=== PATIENT | male | born 1935 | race Caucasian/White ===

== ENCOUNTER 2018-02-11 13:00 | Outpatient (RCR) | payer MEDICARE, OTHER, SELFPAY ==
--- NOTE | 2018-02-11 13:00 | DT_ITS ---
This patient was seen during an EMR downtime February 04, 2018 - February 11, 2018. This patient may have a combination of paper and electronic documentation or all paper documentation. All documentation is viewable within the e-chart portion of [facility] for each patient visit.
--- NOTE | 2018-02-11 20:47 | HP.PTEVAL_ITS ---
Patient's Visit Information LEONOR BOSE is a 82 year old M referred to Physical Therapy by Anoop Garrison with a diagnosis of Lumbar facet arthrisits, stenosis. Date of Evaluation: 02/04/18 Physical Therapist: Rafi Pedroza PT, - Visit Plan Frequency: 2x /Week Duration: 4 Weeks Plan: Endurance training (nustep/recumbent bike). core strength with graded activityprogram with LE flexibility, - Subjective Subjective: Pt reports long history of LBP as far back as his adolescence. Pt with history of prostate CA in 2014 with radiation treatment. He has limited his activity, expereinced weight gain, and weakness at this time. Since then, he feels his back pain has worsened. Pain is worse in the morning and with prolonged walking. Pain decreases with sitting and rest. He used to eercise with walking and lifting at gym. He is not doing this anymore. Has history of bowel incontinence from prostate CA but this is nearly resolved, mild n/t in toes, denies trauma. Had previous PT ~10 years prior. Denies surgical hx or injections for LBP. SOCIAL: . 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 ROM: Lumbar flexion 25% limited, extension 25% limited, LF 25% limited bilaterally. L hip IR marked limitation otherwise WFL, R hip ROM WFL. NEURO: dermatome intact, myotome intact, unable to elicit L3 and S1 DTR. GAIT: Decreased step length, narrow [place] , flexed posture. FLEXIBILITY: Decreased hamstring flexibility. BALANCE: Mild sway with narrow stance with eyes closed - Goals Goal 1:: Pt will report ability to ambulate 30 minutes without increased pain. Goal Time Frame: 4-6 Weeks Goal 2:: Pt will report decreasd morning stiffness intensity. Goal Time Frame: 4-6 Weeks Goal 3:: Pt will be independent with HEP to sustain gains made in therapy. Goal Time Frame: 4-6 Weeks Goal 4:: Pt will reports >/= 50% functional improvement. Goal Time Frame: 4-6 Weeks - Rehabilitation Potential Physical Therapy Diagnosis: Pt is 82 y/o male referred from Dr. Anoop Garrison for lumbar facet arthritis and stenosis. He has history of prostate CA with radiation treatment in 2015 and decreased activity since. His activity limitations include decreased ambulation distance. He has limited participation in his usual recreational activities and community ambulation. Pt will benefit from skilled PT to address the above impairments. Rehabilitation Potential: Good - Anticipated Interventions Patient/Client Instruction: Educate patient on: Condition, Plan of Care For the Purpose of:: To decrease pain, To increase ROM, To improve muscle performance and motor function, To increase tolerance to activity/condition/ position, To improve ability of physical actions for home/community/work/leisure , To improve gait and locomotor functions, To increase flexibility/ROM, To improve endurance, To improve health and function Therapeutic Exercise to Include: Strength training, Endurance training, Body mechanics, Postural training, Flexibilty training, Active ROM For the Purpose of:: To decrease pain, To increase ROM, To improve muscle performance and motor function, To increase tolerance to activity/condition/ position, To improve ability of physical actions for home/community/work/leisure , To increase flexibility/ROM, To improve endurance, To improve balance, To facilitate caregiver knowledge TENS: Yes IF ES: Yes Cryotherapy (ice pack, ice massage): Yes Thermo therapy (hot pack): Yes Ultrasound (thermal/non thermal): Yes For the Purpose of:: To decrease pain, To increase ROM Thank you for the opportunity to evaluate your patient. For Medicare and Medicare HMO plans, please review the plan of care and approve it. It will need to be FAXED BACK to us at [phone] for Medicare purposes. Please let me know if there are questions or concerns regarding this plan of care. Physician Signature: Date:
--- NOTE | 2018-04-10 13:17 | HP.PTDCNRP_ITS ---
HP - Discharge Summary (1) - Patient Information LEONOR BOSE was seen in my office for initial evaluation on 02/04/18. The following Plan of Care was established for this patient: Initial Frequency: 2x /Week Initial Duration: 4 Weeks - Anticipated Interventions Patient/Client Instruction: Educate patient on: Condition, Plan of Care For the Purpose of:: To decrease pain, To increase ROM, To improve muscle performance and motor function, To increase tolerance to activity/condition/ position, To improve ability of physical actions for home/community/work/leisure , To improve gait and locomotor functions, To increase flexibility/ROM, To improve endurance, To improve health and function Therapeutic Exercise to Include: Strength training, Endurance training, Body mechanics, Postural training, Flexibilty training, Active ROM For the Purpose of:: To decrease pain, To increase ROM, To improve muscle performance and motor function, To increase tolerance to activity/condition/ position, To improve ability of physical actions for home/community/work/leisure , To increase flexibility/ROM, To improve endurance, To improve balance, To facilitate caregiver knowledge TENS: Yes IF ES: Yes Cryotherapy (ice pack, ice massage): Yes Thermo therapy (hot pack): Yes Ultrasound (thermal/non thermal): Yes For the Purpose of:: To decrease pain, To increase ROM This patient was last seen in our office 02/11/18. Pertinent comments regarding their Physical therapy will appear below: Patient seen for PT for lumbar pain for couple session focusing on core strengthening ,postural ex's ,HEP and modalities for pain releive,thus is d/c. At this point I will be discontinuing this patient from physical therapy. I would be happy to see this patient again in the future if found appropriate by the physician. Thank you! Rafi Pedroza, PT,
== END 2018-02-11 19:00 | disposition home or self-care (01) ==
LOC: PT 13:00
PROVIDERS: Family Provider Family Medicine; PCP Family Medicine; Visit Provider Family Medicine
DX: M46.86 Other specified inflammatory spondylopathies, lumbar region (principal)
CPT/HCPCS: 97110; 97162; G8978; G8979

== ENCOUNTER → 2020-02-26 15:35 | Outpatient (CLI) | payer MEDICARE, OTHER, SELFPAY ==
[2020-02-27 07:08] LABS: SARS-COV-2 TOTAL ABS Nonreactive (Nonreactive)
== END ==
PROVIDERS: PCP Family Medicine; Referring Provider Family Medicine; Visit Provider Family Medicine
DX: B34.9 Viral infection, unspecified (principal)
CPT/HCPCS: 86769; G2023

== ENCOUNTER 2020-09-23 16:06 | Outpatient (RCR) | payer MEDICARE, OTHER, SELFPAY | END 2020-09-23 23:59 | LOC: IMMUN 16:06 | PROVIDERS: PCP Family Medicine; Visit Provider Family Medicine | DX: Z23 Encounter for immunization (principal) | CPT/HCPCS: 0011A; 0012A; 91301 ==

== ENCOUNTER 2021-02-19 11:22 | Inpatient (IN) | payer MEDICARE, OTHER, SELFPAY ==
[2021-02-19 11:23] VITALS: BP 138/85; PULSE 71; RESP 15; TEMP 36.8; O2SAT 96; BMI 33.2
--- NOTE | 2021-02-19 11:44 | EKG12_ITS ---
Test Reason : CONFUSION Blood Pressure : / mmHG Vent. Rate : 063 BPM Atrial Rate : 063 BPM P-R Int : 148 ms QRS Dur : 098 ms QT Int : 426 ms P-R-T Axes : 061 -19 -10 degrees QTc Int : 435 ms Sinus rhythm with Premature supraventricular complexes Moderate voltage criteria for LVH, may be normal variant Borderline ECG Confirmed by ARVIND GATICA, DORYS ([id number]), make up editor OPAL SMITH ([id number]) on 02/21/2021 10:46:10 A M Referred By: DANNA Confirmed By:CHUY SAMUELS MD
--- NOTE | 2021-02-19 11:47 | EDS_ITS ---
HPI History of Present Illness Chief Complaint: Weakness Informant: patient Onset/Context/Timing Onset: Weeks (2) Context: Gradual Onset Timing: Continuous Quality: Weak Location: Generalized Worsened by: Nothing Relieved by: Nothing Narrative Narrative: Patient presents with generalized weakness that has been getting worse over the past 2 weeks. Patient saw his primary care physician 2 days ago. Patient had an MRI of his brain yesterday which was negative. Patient states he feels like he is off balance. Patient states he has not been eating or drinking anything for the past few days. Patient was diagnosed with a possible urinary tract infection and was started on Bactrim for that. [facility] Medical History (Updated 02/19/21 @ 22:[address] Porfirio Gloria DO) Alcohol abuse Anxiety Degenerative joint disease (DJD) of lumbar spine Former smoker GERD (gastroesophageal reflux disease) Hypercholesterolemia Prostate cancer TIA (transient ischemic attack) Home Medications ascorbic acid (vitamin C) [Vitamin C] 1 g PO DAILY 02/19/21 [History Last Taken Unknown] aspirin-dipyridamole [Aggrenox] 1 cap PO BID 02/19/21 [History Last Taken Unknown] cholecalciferol (vitamin D3) [Vitamin D3] 25 mcg PO MOTUWETHFR 02/19/21 [History Last Taken Unknown] lorazepam [Ativan] 0.5 mg PO BID PRN 02/19/21 [History Last Taken Unknown] multivitamin [Multiple Vitamin] 1 tab PO DAILY 02/19/21 [History Last Taken Unknown] simvastatin [Zocor] 40 mg PO QHS 02/19/21 [History Last Taken Unknown] sulfamethoxazole-trimethoprim [Bactrim DS] 1 tab PO BID 02/19/21 [History Last Taken Unknown] Allergy/AdvReac Type Severity Reaction Status Date / Time Penicillins [PCN] Allergy Rash Verified 02/19/21 11:32 atorvastatin [From Lipitor] AdvReac muscle Verified 02/19/21 16:52 aches clopidogrel [From Plavix] AdvReac bruising Verified 02/19/21 16:52 metformin AdvReac didnt Verified 02/19/21 16:52 feel good Family History (Updated 02/19/21 @ 16:[address] Chaitanya Hodge MD) Father Hypertension Surgical History History of cataract surgery History of herniorrhaphy History of prostate biopsy History of tonsillectomy Social History Smoking Status: Former smoker alcohol intake: current alcohol intake frequency: a few times a month Alcohol type: beer and wine ROS ROS ED Constitutional Constitutional ED: Denies chills or fever(s) Eyes Eyes: Denies blurry vision or change in vision ENT ENT ED: Reports rhinorrhea; Denies sore throat Cardiovascular Cardiovascular: Denies chest pain or palpitations Respiratory/Chest Respiratory/Chest: Denies cough or dyspnea Gastrointestinal Gastrointestinal: Reports nausea and vomiting Genitourinary Genitourinary ED: Denies dysuria or hematuria Musculoskeletal Musculoskeletal: Reports back pain and neck pain Integumentary Denies abscess or rash Neurologic Neurologic: Reports weakness; Denies headache(s) Allergic/Immunologic Allergic/Immunologic ED: Denies mouth swelling or urticaria EXAM Physical Exam Const Vital Signs: 02/19/21 11:23 02/19/21 12:49 02/19/21 14:35 Temperature 98.2 F Temperature Source Oral Pulse Rate 71 60 60 Respiratory Rate 15 20 H 20 H Respiratory Effort Normal Respiratory Pattern Normal Blood Pressure 138/85 H 126/70 H 136/78 H Blood Pressure Mean 102 88 97 Pulse Ox 96 96 Oxygen Delivery Method Room Air Positive well nourished and well developed General Appearance ED: well developed HEENT Reports moist mucous membranes Neck supple and no JVD Chest Wall palpation of chest normal Resp normal respiratory effort and clear to auscultation bilaterally Cardio regular rate and regular rhythm GI normal to inspection, nondistended, normoactive bowel sounds and non-tender Palpation: soft Neuro oriented x3, CN's II-XII intact bilaterally and no sensory deficits noted Sensorium / Orientation: alert Motor Exam: strength 5/5 throughout Psych mental status grossly normal MDM MDM MDM Narrative Medical decision making narrative: EKG was obtained. On my interpretation, it showed a normal sinus rhythm with a rate of 63 with occasional PAC. [place] interv al, QRS interval, and QTc intervals were all normal. [place] was normal. There are no acute ST or T wave changes. CBC and comprehensive metabolic profile were obtained and were essentially within normal limits. Troponin was normal. PT with INR and PTT were normal. Lactate was normal. Urinalysis does not show any evidence of urinary tract infection. Since the patient had a MRI done yesterday, CT scan of the brain was not performed today. Portable 1 view chest x-ray was obtained. On my interpretation, lung worthy are clear. There is normal cardiac silhouette. Bony thorax is normal. There is no acute process noted. Radiologist also interpreted the x-ray and agrees. On reevaluation, patient was having difficulty even standing and was unable to ambulate. Case was discussed with the hospitalist. He will admit the patient to his service. Patient understood and was agreeable with the plan. All questions were answered. Lab Data Labs: Laboratory Results - last 24 hr 02/19/21 02/19/21 02/19/21 12:45 12:45 12:45 WBC 7.4 RBC 4.54 L Hgb 13.6 Hct 41.6 MCV 91.6 MCH 30.0 MCHC 32.7 RDW Std Deviation 45.8 H RDW Coeff of [place] 13.5 Plt Count 244 MPV 9.9 Immature Gran % (Auto) 0.400 Neut % (Auto) 72.7 H Lymph % (Auto) 16.1 L [place] % (Auto) 10.1 H Eos % (Auto) 0.3 Baso % (Auto) 0.4 Absolute Neuts (auto) 5.4 Absolute Lymphs (auto) 1.19 Nucleated RBC % 0 PT 13.3 INR 1.1 APTT 29.6 Sodium 136 Potassium 4.1 Chloride 103 Carbon Dioxide 25.0 Anion Gap 8 BUN 14 Creatinine 0.76 Estim Creat Clear Calc 54.15 Est GFR (MDRD) Af Amer 126 Est GFR (MDRD) Non-Af 104 BUN/Creatinine Ratio 18.5 Glucose 103 Lactic Acid Calcium 8.9 Total Bilirubin 0.70 AST 27 ALT 27 Alkaline Phosphatase 65 Troponin I < 0.015 Total Protein 6.8 Albumin 3.6 Globulin 3.2 Albumin/Globulin Ratio 1.1 Urine Color Urine Clarity Urine pH Ur Specific [place] Urine Protein Urine Glucose (UA) Urine Ketones Urine Occult Blood Urine Nitrite Urine Bilirubin Urine Urobilinogen Ur Leukocyte Esterase Urine RBC Urine WBC Ur Squamous Epith Cells Urine Bacteria Urine Mucus 02/19/21 02/19/21 12:45 14:00 WBC RBC Hgb Hct MCV MCH MCHC RDW Std Deviation RDW Coeff of [place] Plt Count MPV Immature Gran % (Auto) Neut % (Auto) Lymph % (Auto) [place] % (Auto) Eos % (Auto) Baso % (Auto) Absolute Neuts (auto) Absolute Lymphs (auto) Nucleated RBC % PT INR APTT Sodium Potassium Chloride Carbon Dioxide Anion Gap BUN Creatinine Estim Creat Clear Calc Est GFR (MDRD) Af Amer Est GFR (MDRD) Non-Af BUN/Creatinine Ratio Glucose Lactic Acid 1.2 Calcium Total Bilirubin AST ALT Alkaline Phosphatase Troponin I Total Protein Albumin Globulin Albumin/Globulin Ratio Urine Color Yellow Urine Clarity Clear Urine pH 5.0 Ur Specific [place] 1.025 Urine Protein 30 H Urine Glucose (UA) Normal Urine Ketones 150 A* Urine Occult Blood 25 H Urine Nitrite Negative Urine Bilirubin Negative Urine Urobilinogen 1 H Ur Leukocyte Esterase Negative Urine RBC 0-5 SEEN Urine WBC 0 SEEN Ur Squamous Epith Cells 0 SEEN Urine Bacteria 1+ Urine Mucus 1+ Radiography Diagnostic Testing: Radiology Impression Chest X-Ray 02/19/21 12:35 IMPRESSION: Normal x-ray examination of the chest. Electronically Signed: Franco Macedo MD at 13:23 EDT Tel , Service support , EKG Initial EKG: Attestation: I personally reviewed and interpreted this EKG as follows: Interpretation: Sinus Rhythm (63) and No Acute Injury Pattern Comments: Occasional PAC Prior EKG tracings: available for review Prior: Unchanged (12/12/2010) Treatment and Re-Evaluation Vital Sign Attestation:: Vital signs were reviewed prior to admission. They are stable. Discharge Plan Dx/Rx/DC Orders Clinical Impression: FTT (failure to thrive) in adult Disposition Disposition: Acute Care Hospital [facility] Discharge Date/Time: 02/19/21 16:20
--- NOTE | 2021-02-19 12:35 | RAD_ITS ---
STUDY: X-RAY CHEST REASON FOR EXAM: Male, 85 years old. Weakness TECHNIQUE: Frontal portable view of the chest COMPARISON: None. FINDINGS: The lungs are clear and expanded. There is no demonstrated pleural abnormality. Normal size heart. Normal mediastinum and mickey. Normal visualized pulmonary arteries. Normal visualized aortic arch and descending thoracic aorta. Normal visualized thoracic spine. Normal visualized ribs, clavicles, and shoulders. There is no demonstrated abnormality of the visualized soft tissue structures of the upper abdomen. RAD/Chest 1 View (Portable) IMPRESSION: Normal x-ray examination of the chest. Electronically Signed: Franco Macedo MD at 13:23 EDT Tel , Service support ,
[2021-02-19 12:49] VITALS: BP 126/70; PULSE 60; RESP 20; O2SAT 96
[2021-02-19] MEDS: 0.9% Normal Saline 1,000 ML 1000 ML IV (12:59)
[2021-02-19 13:06] LABS: Absolute Lymphocyte Count 1.19 X10^3/uL (0.83-4.51); Absolute Neutrophil Count 5.4 X10^3/uL (2.0-7.7); Basophil# 0.03 X10^3/uL; Basophil% 0.4 % (0-1); Eosinophil# 0.02 X10^3/uL; Eosinophils% 0.3 % (0-5); Hematocrit 41.6 % (40-54); Hemoglobin 13.6 g/dL (13.0-16.5); Lymphocyte # 1.19 X10^3/ul (0.83-4.51); Lymphocyte % 16.1 % (19-41); Mean Corp Hgb Conc 32.7 g/dL (32-36); Mean Corpuscular Volume 91.6 fL (80-94); Mean Platelet Vol. 9.9 fl (6.2-12.0); Monocyte# 0.75 X10^3/uL; Monocyte% 10.1 % (0-10); NRBC Flagged by Analyzer 0 % (0-5); Neutrophil # 5.37 X10^3/uL (2.7-7.7); Neutrophil % 72.7 % (47-70); Platelet Count 244 K/mm3 (150-450); RBC Distribution Width CV 13.5 % (11.6-14.6); RBC Distribution Width SD 45.8 fl (35.1-43.9); Red Blood Count 4.54 M/mm3 (4.6-6.2); White Blood Count 7.4 K/mm3 (4.4-11.0)
[2021-02-19 13:10] LABS: International Normalized Ratio 1.1; Prothrombin Time (Protime)PT. 13.3 SECONDS (11.7-14.9)
[2021-02-19 13:11] LABS: Partial Thromboplast Time 29.6 Seconds (24.1-36.2)
[2021-02-19 13:18] LABS: ALB/GLOB Ratio 1.1 RATIO (0.9-2.4); AST(SGOT) 27 U/L (15-37); Alanine Aminotransfer ALT/SGPT 27 U/L (16-61); Albumin, Serum 3.6 g/dL (3.2-5.0); Alkaline Phosphatase 65 U/L (45-117); Anion Gap 8 (5-15); BUN 14 mg/dL (7-18); BUN/Creat Ratio 18.5 RATIO (10-20); Calcium,Total 8.9 mg/dL (8.5-10.1); Chloride 103 mmol/L (98-107); Creatinine, Serum 0.76 mg/dL (0.70-1.30); EST Glomerular Filtration Rate 104 mL/min (>60); Est Glom Filt Rate - Afr Amer 126 mL/min (>60); Estimated Creatinine Clearance 54.15 ml/min; Globulin 3.2 g/dL (2.2-4.2); Glucose 103 mg/dL (74-106); Potassium 4.1 mmol/L (3.5-5.1); Protein, Total 6.8 g/dL (6.4-8.2); Sodium Level 136 mmol/L (136-145)
[2021-02-19 13:21] LABS: Lactic Acid 1.2 mmol/L (0.4-1.9)
[2021-02-19 14:04] LABS: Squamous Epithelial Cells - UA 0 SEEN /hpf (0-5); White Blood Cells 0 SEEN /hpf (0-5)
[2021-02-19 14:08] LABS: Color, Urine Yellow (Yellow); Glucose, Dipstick Normal (Normal); Leukocyte Esterase-Dipstick Negative /ul (Negative); Nitrite-Dipstick Negative (Negative); Occult Blood-Urine 25 /ul (Negative); Protein-Dipstick 30 mg/dl (Negative); Specific Gravity, Urine 1.025 (1.002-1.030); Urine Bilirubin Dipstick Negative (Negative); Urine Clarity Clear (Clear); Urine Urobilinogen 1 mg/dl (Normal)
[2021-02-19 14:11] LABS: Ketone-Dipstick 150 mg/dl (Negative)
[2021-02-19 14:14] LABS: Bacteria 1+ /hpf (None Seen); Mucous, Urine 1+ /hpf (<or=2+); Red Blood Cells-Urine 0-5 SEEN /hpf (0-5)
[2021-02-19 14:35] VITALS: BP 136/78; PULSE 60; RESP 20
--- NOTE | 2021-02-19 15:56 | PCM.HP.STD ---
HPI - General General Date of Admission: 02/19/21 Date of Service: 02/19/21 Chief Complaint: Generalized weakness HPI Narrative LEONOR BOSE, is a 85 M with past medical history significant for dyslipidemia, recent diagnosis of UTI as outpatient who presents with generalized weakness. Patient states he had been treated with Bactrim for UTI as outpatient he however did not complete treatment since it made him sick. He has also noticed increasing generalized weakness and unsteady balance and difficulty with speech as well as recollection of his start. Presented to the emergency department as a result. An assessment of dehydration made based on his labs. Admitted to regular nursing floor for further management [facility] Medical History Anxiety Degenerative joint disease (DJD) of lumbar spine Hypercholesterolemia Prostate cancer Home Medications ascorbic acid (vitamin C) [Vitamin C] 1 g PO DAILY 02/19/21 [History Last Taken Unknown] aspirin-dipyridamole [Aggrenox] 1 cap PO BID 02/19/21 [History Last Taken Unknown] cholecalciferol (vitamin D3) [Vitamin D3] 25 mcg PO MOTUWETHFR 02/19/21 [History Last Taken Unknown] lorazepam [Ativan] 0.5 mg PO BID PRN 02/19/21 [History Last Taken Unknown] multivitamin [Multiple Vitamin] 1 tab PO DAILY 02/19/21 [History Last Taken Unknown] simvastatin [Zocor] 40 mg PO QHS 02/19/21 [History Last Taken Unknown] sulfamethoxazole-trimethoprim [Bactrim DS] 1 tab PO BID 02/19/21 [History Last Taken Unknown] Allergy/AdvReac Type Severity Reaction Status Date / Time Penicillins [PCN] Allergy Rash Verified 02/19/21 11:32 atorvastatin [From Lipitor] AdvReac Other Verified 02/19/21 11:32 clopidogrel [From Plavix] AdvReac Other Verified 02/19/21 11:32 metformin AdvReac Other Verified 02/19/21 11:32 Family History (Updated 02/19/21 @ 16:[address] Chaitanya Hodge MD) Father Hypertension Surgical History History of cataract surgery History of herniorrhaphy History of prostate biopsy History of tonsillectomy Social History Smoking Status: Never smoker alcohol intake: current alcohol intake frequency: a few times a month Alcohol type: beer and wine ROS ROS Narrative GENERAL: denies fever, chills, HEENT: denies headache, sinus congestion, RESPIRATORY: denies cough, sputum production, CARDIAC: denies chest pain, palpitations, GASTROINTESTINAL: denies abdominal pain, GENITOURINARY: denies dysuria, urgency, EXTREMITY: denies swelling MUSCULOSKELETAL: denies current joint pain NEUROLOGIC: denies focal numbness, HEMATOLOGIC: denies easy bruising INTEGUMENT: denies rashes PSYCHIATRIC: denies suicidal or homicidal ideation Vital Signs Vital Signs Vital Signs: 02/19/21 11:23 02/19/21 12:49 02/19/21 14:35 Temperature 98.2 F Temperature Source Oral Pulse Rate 71 60 60 Respiratory Rate 15 20 H 20 H Respiratory Effort Normal Respiratory Pattern Normal Blood Pressure 138/85 H 126/70 H 136/78 H Blood Pressure Mean 102 88 97 Pulse Ox 96 96 Oxygen Delivery Method Room Air Weight Weight: 99 kg Body Mass Index (BMI) 33.2 Physical Exam Narrative GENERAL: cooperative HEENT: Atraumatic; EYES; Anicteric, Normal Conjunctiva NECK; supple, normal thyroid, RESPIRATORY: Diminished to auscultation CARDIOVASCULAR: Regular S1 S2, GI: soft, normoactive bowel sounds, : No Renal angle tenderness; EXTREMITIES: No edema, no clubbing, MUSCULOSKELETAL: no muscle waisting NEURO: Awake; no lateralizing signs. SKIN: No Rash PSYCH; Flat affect Results Lab / Micro Data Result Diagrams: 02/19/21 12:45 02/19/21 12:45 Labs: Laboratory Results - last 24 hr 02/19/21 02/19/21 02/19/21 12:45 12:45 12:45 WBC 7.4 RBC 4.54 L Hgb 13.6 Hct 41.6 MCV 91.6 MCH 30.0 MCHC 32.7 RDW Std Deviation 45.8 H RDW Coeff of [place] 13.5 Plt Count 244 MPV 9.9 Immature Gran % (Auto) 0.400 Neut % (Auto) 72.7 H Lymph % (Auto) 16.1 L [place] % (Auto) 10.1 H Eos % (Auto) 0.3 Baso % (Auto) 0.4 Absolute Neuts (auto) 5.4 Absolute Lymphs (auto) 1.19 Nucleated RBC % 0 PT 13.3 INR 1.1 APTT 29.6 Sodium 136 Potassium 4.1 Chloride 103 Carbon Dioxide 25.0 Anion Gap 8 BUN 14 Creatinine 0.76 Estim Creat Clear Calc 54.15 Est GFR (MDRD) Af Amer 126 Est GFR (MDRD) Non-Af 104 BUN/Creatinine Ratio 18.5 Glucose 103 Lactic Acid Calcium 8.9 Total Bilirubin 0.70 AST 27 ALT 27 Alkaline Phosphatase 65 Troponin I < 0.015 Total Protein 6.8 Albumin 3.6 Globulin 3.2 Albumin/Globulin Ratio 1.1 Urine Color Urine Clarity Urine pH Ur Specific [place] Urine Protein Urine Glucose (UA) Urine Ketones Urine Occult Blood Urine Nitrite Urine Bilirubin Urine Urobilinogen Ur Leukocyte Esterase Urine RBC Urine WBC Ur Squamous Epith Cells Urine Bacteria Urine Mucus 02/19/21 02/19/21 12:45 14:00 WBC RBC Hgb Hct MCV MCH MCHC RDW Std Deviation RDW Coeff of [place] Plt Count MPV Immature Gran % (Auto) Neut % (Auto) Lymph % (Auto) [place] % (Auto) Eos % (Auto) Baso % (Auto) Absolute Neuts (auto) Absolute Lymphs (auto) Nucleated RBC % PT INR APTT Sodium Potassium Chloride Carbon Dioxide Anion Gap BUN Creatinine Estim Creat Clear Calc Est GFR (MDRD) Af Amer Est GFR (MDRD) Non-Af BUN/Creatinine Ratio Glucose Lactic Acid 1.2 Calcium Total Bilirubin AST ALT Alkaline Phosphatase Troponin I Total Protein Albumin Globulin Albumin/Globulin Ratio Urine Color Yellow Urine Clarity Clear Urine pH 5.0 Ur Specific [place] 1.025 Urine Protein 30 H Urine Glucose (UA) Normal Urine Ketones 150 A* Urine Occult Blood 25 H Urine Nitrite Negative Urine Bilirubin Negative Urine Urobilinogen 1 H Ur Leukocyte Esterase Negative Urine RBC 0-5 SEEN Urine WBC 0 SEEN Ur Squamous Epith Cells 0 SEEN Urine Bacteria 1+ Urine Mucus 1+ Micro: Microbiology 02/19/21 13:00 SARS-CoV-2 Antigen (Rapid) - Final Mucosa - Nose Radiology Impression Chest X-Ray 02/19/21 12:35 IMPRESSION: Normal x-ray examination of the chest. Electronically Signed: Franco Macedo MD at 13:23 EDT Tel , Service support , Assessment & Plan Assessment/Plan (1) Dehydration: (2) Ketonuria: (3) FTT (failure to thrive) in adult: PLAN: Patient is an 85-year-old gentleman admitted with progressive generalized weakness 1. Adult failure to thrive - Requested for PT OT eval and oncology social worker to assist with discharge planning 2. Dehydration ?As evidenced by patient's ketonuria ?On IV fluids with subsequent monitoring of electrolytes 3. Partially treated acute cystitis ?Patient started on Rocephin cultures sent 4. Dyslipidemia -Patient is on statin therapy, continued at home dose 5. Obesity with BMI of 33.2 ?Weight loss advised 6. DVT prophylaxis - On enoxaparin Advance planning; did discuss with the patient regarding advanced directives as well as CODE STATUS. Did explain the various scenarios involved ( FULL CODE, DNR CCA, DNR CCA with no intubation, and DNR CC and what each meant) patient elected to be DNR CCA no intubation. Order was placed. Time spent on discussion 18 minutes. Charges/Coding Visit Charges OBSV E&M: 78553 Initial observation care L3 Procedures Hospitalists Procedures: 23949 Advncd Care Plan 30 Min
[2021-02-19 16:48] VITALS: BMI 33.4
[2021-02-19 16:49] VITALS: BP 132/70; PULSE 66; RESP 18; TEMP 36.6; O2SAT 94
[2021-02-19] MEDS: Enoxaparin 40 MG/0.4 ML Syringe SC (17:12)
[2021-02-19] MEDS: 0.9% Normal Saline 1,000 ML 100 ML IV (17:12)
[2021-02-19] MEDS: 0.9% Saline Lock 10 ML Syringe IV (17:12)
--- NOTE | 2021-02-19 17:25 | CM.ED ---
ANTONIA Note ANTONIA was advised by RN in ED that patient's daughter, Rowena, resides in [place] and is asking about patient needing a Retirement Facility or Assisted Living Facility in [place] or in [place]. Rn said that patient has been playing with his meds and is confused and pops them to take them. RN said that patient is not eating or drinking but when she hands the water and food to him he eats and drinks. RN said that patient is unstead on his feet and had urine all over him when he got up. Patient told RN that the water does not taste good but when RN gave him water he drank 2 glasses of it. ANTONIA called Rowena, daughter in [place] at [phone]. Rowena was advised that patient is currently on observation status. Rowena said that her sister is closer so her sister is coming to [place] but they are trying to arrange it. ANTONIA explained PT/OT have been ordered and when the evaluations are completed then staff will have a better understanding of patient and his needs. Rowena said that she has information that she would like to provide to the MD and requested to speak to MD. ANTONIA provided patient with the phone number of [phone]. Rowena has no further issues or concerns. Plan: To be determined. Rivka POE
--- NOTE | 2021-02-19 17:50 | NURSING ---
IV SITE INFILTRATED. THIS NURSE ATTEMPTED RESTART X2. ANOTHER NURSE WENT TO RESTART BUT PT UNWILLING TO PUT HIS SANDWICH DOWN AT THIS TIME. WILL START FLUIDS AND ATB WHEN IV IS PLACED. PT ALSO REPORTS THAT HE BROUGHT HIS CANE TO THE HOSPITAL, THIS NURSE CALLED AND NOTIFIED KOSTA IN THE ER.
[2021-02-19] MEDS: Ceftriaxone 1 GM/50 ML BAG IV (18:18)
[2021-02-19 20:29] VITALS: BP 108/55; PULSE 61; RESP 18; TEMP 36.9; O2SAT 96
[2021-02-20 02:44] VITALS: BP 120/60; PULSE 99; RESP 18; TEMP 36.7; O2SAT 96
[2021-02-20 06:14] LABS: Absolute Lymphocyte Count 1.56 X10^3/uL (0.83-4.51); Absolute Neutrophil Count 4.2 X10^3/uL (2.0-7.7); Basophil# 0.05 X10^3/uL; Basophil% 0.7 % (0-1); Eosinophil# 0.09 X10^3/uL; Eosinophils% 1.3 % (0-5); Hematocrit 40.1 % (40-54); Hemoglobin 13.1 g/dL (13.0-16.5); Lymphocyte # 1.56 X10^3/ul (0.83-4.51); Lymphocyte % 23.1 % (19-41); Mean Corp Hgb Conc 32.7 g/dL (32-36); Mean Corpuscular Hgb 29.9 pg (27.0-32.0); Mean Corpuscular Volume 91.6 fL (80-94); Mean Platelet Vol. 10.2 fl (6.2-12.0); Monocyte# 0.81 X10^3/uL; NRBC Flagged by Analyzer 0 % (0-5); Neutrophil # 4.22 X10^3/uL (2.7-7.7); Neutrophil % 62.6 % (47-70); Platelet Count 234 K/mm3 (150-450); RBC Distribution Width CV 13.2 % (11.6-14.6); RBC Distribution Width SD 45.1 fl (35.1-43.9); Red Blood Count 4.38 M/mm3 (4.6-6.2); White Blood Count 6.8 K/mm3 (4.4-11.0)
[2021-02-20 06:37] LABS: Anion Gap 7 (5-15); BUN 12 mg/dL (7-18); BUN/Creat Ratio 17.8 RATIO (10-20); Calcium,Total 8.3 mg/dL (8.5-10.1); Chloride 106 mmol/L (98-107); Creatinine, Serum 0.68 mg/dL (0.70-1.30); EST Glomerular Filtration Rate 119 mL/min (>60); Est Glom Filt Rate - Afr Amer 144 mL/min (>60); Estimated Creatinine Clearance 54.15 ml/min; Glucose 102 mg/dL (74-106); Potassium 3.6 mmol/L (3.5-5.1); Sodium Level 137 mmol/L (136-145)
--- NOTE | 2021-02-20 07:18 | PN.HOSP_ITS ---
Subjective Subjective Patient seen per nursing staff was delirious during the night removing his IV 3 times. Did discontinue his IV change antibiotics to p.o. Do suspect some underlying cognitive issues. Objective Data Objective Data Vital Signs: Vital Signs Temp Pulse Resp BP Pulse Ox 98.1 F 99 18 120/60 96 02/20/21 02:44 02/20/21 02:44 02/20/21 02:44 02/20/21 02:44 02/20/21 02:44 Oxygen Delivery Method Room Air Weight: 99.8 kg Body Mass Index (BMI) 33.4 Intake & Output: Intake and Output for Last 24 Hours 02/18/21 02/19/21 02/20/21 23:59 23:59 23:59 Intake Total 1161.67 / 1461.67 1388.33 / 1388.33 Output Total 1100 / 1100 Balance 1161.67 / 961.67 288.33 / 288.33 Lab / Micro Data Result Diagrams: 02/20/21 05:42 02/20/21 05:42 Labs: Laboratory Results - last 24 hr 02/19/21 02/19/21 02/19/21 12:45 12:45 12:45 WBC 7.4 RBC 4.54 L Hgb 13.6 Hct 41.6 MCV 91.6 MCH 30.0 MCHC 32.7 RDW Std Deviation 45.8 H RDW Coeff of [place] 13.5 Plt Count 244 MPV 9.9 Immature Gran % (Auto) 0.400 Neut % (Auto) 72.7 H Lymph % (Auto) 16.1 L Loving % (Auto) 10.1 H Eos % (Auto) 0.3 Baso % (Auto) 0.4 Absolute Neuts (auto) 5.4 Absolute Lymphs (auto) 1.19 Nucleated RBC % 0 PT 13.3 INR 1.1 APTT 29.6 Sodium 136 Potassium 4.1 Chloride 103 Carbon Dioxide 25.0 Anion Gap 8 BUN 14 Creatinine 0.76 Estim Creat Clear Calc 54.15 Est GFR (MDRD) Af Amer 126 Est GFR (MDRD) Non-Af 104 BUN/Creatinine Ratio 18.5 Glucose 103 Lactic Acid Calcium 8.9 Magnesium Total Bilirubin 0.70 AST 27 ALT 27 Alkaline Phosphatase 65 Troponin I < 0.015 Total Protein 6.8 Albumin 3.6 Globulin 3.2 Albumin/Globulin Ratio 1.1 Urine Color Urine Clarity Urine pH Ur Specific [place] Urine Protein Urine Glucose (UA) Urine Ketones Urine Occult Blood Urine Nitrite Urine Bilirubin Urine Urobilinogen Ur Leukocyte Esterase Urine RBC Urine WBC Ur Squamous Epith Cells Urine Bacteria Urine Mucus 02/19/21 02/19/21 02/20/21 12:45 14:00 05:42 WBC 6.8 RBC 4.38 L Hgb 13.1 Hct 40.1 MCV 91.6 MCH 29.9 MCHC 32.7 RDW Std Deviation 45.1 H RDW Coeff of [place] 13.2 Plt Count 234 MPV 10.2 Immature Gran % (Auto) 0.300 Neut % (Auto) 62.6 Lymph % (Auto) 23.1 Loving % (Auto) 12.0 H Eos % (Auto) 1.3 Baso % (Auto) 0.7 Absolute Neuts (auto) 4.2 Absolute Lymphs (auto) 1.56 Nucleated RBC % 0 PT INR APTT Sodium Potassium Chloride Carbon Dioxide Anion Gap BUN Creatinine Estim Creat Clear Calc Est GFR (MDRD) Af Amer Est GFR (MDRD) Non-Af BUN/Creatinine Ratio Glucose Lactic Acid 1.2 Calcium Magnesium Total Bilirubin AST ALT Alkaline Phosphatase Troponin I Total Protein Albumin Globulin Albumin/Globulin Ratio Urine Color Yellow Urine Clarity Clear Urine pH 5.0 Ur Specific [place] 1.025 Urine Protein 30 H Urine Glucose (UA) Normal Urine Ketones 150 A* Urine Occult Blood 25 H Urine Nitrite Negative Urine Bilirubin Negative Urine Urobilinogen 1 H Ur Leukocyte Esterase Negative Urine RBC 0-5 SEEN Urine WBC 0 SEEN Ur Squamous Epith Cells 0 SEEN Urine Bacteria 1+ Urine Mucus 1+ 02/20/21 05:42 WBC RBC Hgb Hct MCV MCH MCHC RDW Std Deviation RDW Coeff of [place] Plt Count MPV Immature Gran % (Auto) Neut % (Auto) Lymph % (Auto) Loving % (Auto) Eos % (Auto) Baso % (Auto) Absolute Neuts (auto) Absolute Lymphs (auto) Nucleated RBC % PT INR APTT Sodium 137 Potassium 3.6 Chloride 106 Carbon Dioxide 24.0 Anion Gap 7 BUN 12 Creatinine 0.68 L Estim Creat Clear Calc 54.15 Est GFR (MDRD) Af Amer 144 Est GFR (MDRD) Non-Af 119 BUN/Creatinine Ratio 17.8 Glucose 102 Lactic Acid Calcium 8.3 L Magnesium 2.0 Total Bilirubin AST ALT Alkaline Phosphatase Troponin I Total Protein Albumin Globulin Albumin/Globulin Ratio Urine Color Urine Clarity Urine pH Ur Specific [place] Urine Protein Urine Glucose (UA) Urine Ketones Urine Occult Blood Urine Nitrite Urine Bilirubin Urine Urobilinogen Ur Leukocyte Esterase Urine RBC Urine WBC Ur Squamous Epith Cells Urine Bacteria Urine Mucus Micro: Microbiology 02/19/21 13:00 Mucosa - Nose SARS-CoV-2 Antigen (Rapid) - Final Radiography Diagnostic Testing: Radiology Impression Chest X-Ray 02/19/21 12:35 IMPRESSION: Normal x-ray examination of the chest. Electronically Signed: Franco Macedo MD at 13:23 EDT Tel , Service support , Physical Exam Narrative GENERAL: cooperative HEENT: Atraumatic; EYES; Anicteric, Normal Conjunctiva NECK; supple, normal thyroid, RESPIRATORY: Diminished to auscultation CARDIOVASCULAR: Regular S1 S2, GI: soft, normoactive bowel sounds, : No Renal angle tenderness; EXTREMITIES: No edema, no clubbing, MUSCULOSKELETAL: no muscle waisting NEURO: Awake; no lateralizing signs. SKIN: No Rash PSYCH; Flat affect Assessment & Plan Assessment/Plan (1) Dehydration: (2) Ketonuria: (3) FTT (failure to thrive) in adult: PLAN: Patient is an 85-year-old gentleman admitted with progressive generalized weakness 1. Adult failure to thrive - Requested for PT OT eval and social research assistant to assist with discharge planning 2. Dehydration ?As evidenced by patient's ketonuria ?On IV fluids with subsequent monitoring of electrolytes 3. Partially treated acute cystitis ?Patient started on Rocephin cultures sent ?02/20/2021; discontinue Rocephin start the patient on cefdinir will discontinue antibiotics if cultures come back negative 4. Dyslipidemia -Patient is on statin therapy, continued at home dose 5. Obesity with BMI of 33.2 ?Weight loss advised 6. DVT prophylaxis - On enoxaparin 7. Cognitive impairment ?Do suspect patient may be experiencing early phase of dementia Charges/Coding Visit Charges Inpatient E&M: 37082 Subs Hosp L2
[2021-02-20] MEDS: Enoxaparin 40 MG/0.4 ML Syringe SC (09:39)
[2021-02-20] MEDS: Cefdinir 300 MG Capsule PO ×2 (09:40→20:09)
[2021-02-20] MEDS: Famotidine 20 MG Tablet PO ×2 (09:40→20:08)
[2021-02-20 09:44] VITALS: BP 150/91; PULSE 81; RESP 16; TEMP 36.6; O2SAT 96
[2021-02-20 15:41] VITALS: BP 123/75; PULSE 68; RESP 14; TEMP 36.6; O2SAT 94
[2021-02-20 19:58] VITALS: BP 150/86; PULSE 66; RESP 16; TEMP 36.6; O2SAT 98
[2021-02-20] MEDS: MELATONIN 3 MG TABLET PO (20:08)
[2021-02-20] MEDS: Acetaminophen 325 MG Tablet 650 MG PO (20:09)
[2021-02-21 04:19] VITALS: BP 136/66; PULSE 58; RESP 16; TEMP 36.3; O2SAT 98
--- NOTE | 2021-02-21 04:20 | NURSING ---
staff in to check on pt he had removed his wet attend and dropped it on the floor, pt was naked and had voided in his bed. staff changed linens, provided personal hygiene, new attends on, bed exit on. pt denies needs.
[2021-02-21 06:11] LABS: Absolute Lymphocyte Count 1.44 X10^3/uL (0.83-4.51); Absolute Neutrophil Count 3.6 X10^3/uL (2.0-7.7); Basophil# 0.07 X10^3/uL; Basophil% 1.2 % (0-1); Eosinophil# 0.16 X10^3/uL; Eosinophils% 2.7 % (0-5); Hematocrit 39.8 % (40-54); Lymphocyte # 1.44 X10^3/ul (0.83-4.51); Mean Corp Hgb Conc 32.7 g/dL (32-36); Mean Corpuscular Hgb 29.9 pg (27.0-32.0); Mean Corpuscular Volume 91.5 fL (80-94); Mean Platelet Vol. 9.8 fl (6.2-12.0); Monocyte% 11.7 % (0-10); NRBC Flagged by Analyzer 0 % (0-5); Neutrophil % 60.1 % (47-70); Platelet Count 234 K/mm3 (150-450); RBC Distribution Width CV 13.1 % (11.6-14.6); RBC Distribution Width SD 43.7 fl (35.1-43.9); Red Blood Count 4.35 M/mm3 (4.6-6.2)
[2021-02-21 06:36] LABS: Anion Gap 5 (5-15); BUN 9 mg/dL (7-18); BUN/Creat Ratio 14.3 RATIO (10-20); Calcium,Total 8.7 mg/dL (8.5-10.1); Chloride 105 mmol/L (98-107); Creatinine, Serum 0.63 mg/dL (0.70-1.30); EST Glomerular Filtration Rate 129 mL/min (>60); Est Glom Filt Rate - Afr Amer 156 mL/min (>60); Estimated Creatinine Clearance 54.15 ml/min; Glucose 109 mg/dL (74-106); Potassium 3.5 mmol/L (3.5-5.1); Sodium Level 138 mmol/L (136-145)
[2021-02-21 10:20] VITALS: BP 132/76; PULSE 76; RESP 16; TEMP 36.7; O2SAT 96
--- NOTE | 2021-02-21 10:43 | PCM.PN.HOSP ---
Subjective Subjective States that his brains little bit slow, he knows where he is and what the year is but he does not remember his age. Has not been sleeping very well. Urine cultures are negative and blood cultures are also likely negative. He states that he had an MRI at the [facility] recently and will attempt to get records Objective Data Objective Data Vital Signs: Vital Signs Temp Pulse Resp BP Pulse Ox 98.1 F 76 16 132/76 H 96 02/21/21 10:20 02/21/21 10:20 02/21/21 10:20 02/21/21 10:20 02/21/21 10:20 Oxygen Delivery Method Room Air Weight: 220 lb 0.341 oz Body Mass Index (BMI) 33.4 Intake & Output: Intake and Output for Last 24 Hours 02/20/21 02/21/21 02/22/21 03:59 03:59 03:59 Intake Total 1461.67 / 1461.67 1588.33 / 1588.33 Output Total 500 / 500 1550 / 1550 300 / 300 Balance 961.67 / 961.67 38.33 / 38.33 -300 / -300 Lab / Micro Data Result Diagrams: 02/21/21 05:55 02/21/21 05:55 Labs: Laboratory Results - last 24 hr 02/21/21 02/21/21 05:55 05:55 WBC 6.0 RBC 4.35 L Hgb 13.0 Hct 39.8 L MCV 91.5 MCH 29.9 MCHC 32.7 RDW Std Deviation 43.7 RDW Coeff of [place] 13.1 Plt Count 234 MPV 9.8 Immature Gran % (Auto) 0.300 Neut % (Auto) 60.1 Lymph % (Auto) 24.0 [place] % (Auto) 11.7 H Eos % (Auto) 2.7 Baso % (Auto) 1.2 H Absolute Neuts (auto) 3.6 Absolute Lymphs (auto) 1.44 Nucleated RBC % 0 Sodium 138 Potassium 3.5 Chloride 105 Carbon Dioxide 28.0 Anion Gap 5 BUN 9 Creatinine 0.63 L Estim Creat Clear Calc 54.15 Est GFR (MDRD) Af Amer 156 Est GFR (MDRD) Non-Af 129 BUN/Creatinine Ratio 14.3 Glucose 109 H Calcium 8.7 Micro: Microbiology 02/19/21 14:00 Urine, Clean Catch Urine Culture - Preliminary Culture exhibits no growth. 02/19/21 13:00 Mucosa - Nose SARS-CoV-2 Antigen (Rapid) - Final Physical Exam Narrative GENERAL: cooperative HEENT: Atraumatic; EYES; Anicteric, Normal Conjunctiva NECK; supple, normal thyroid, RESPIRATORY: Diminished to auscultation CARDIOVASCULAR: Regular S1 S2, GI: soft, normoactive bowel sounds, : No Renal angle tenderness; EXTREMITIES: No edema, no clubbing, MUSCULOSKELETAL: no muscle waisting NEURO: Awake; no lateralizing signs. SKIN: No Rash PSYCH; Flat affect Const alert and no apparent distress Orientation / Consciousness: oriented to place and oriented to time HEENT moist oral mucous membranes Head and Scalp: normocephalic Eyes PERRL, EOMs intact bilaterally and conjunctivae normal Neck supple and no JVD Resp normal respiratory effort, no retractions, no use of accessory muscles and clear to auscultation bilaterally Auscultation: diminished lung sounds; Negative for crackles, rales, rhonchi or wheezes Cardio regular rate, regular rhythm, S1 normal heart sound, S2 normal heart sound and no murmurs GI soft to palpation, non-tender and non-distended; Negative for hepatosplenomegaly Extremity no clubbing, cyanosis or edema Skin no rashes or lesions noted Neuro no focal motor deficits and no sensory deficits noted Psych affect normal Appearance: appropriate Assessment & Plan Assessment/Plan (1) Dehydration: (2) Ketonuria: (3) FTT (failure to thrive) in adult: PLAN: Patient is an 85-year-old gentleman admitted with progressive generalized weakness 1. Adult failure to thrive - Requested for PT OT eval and social professionals to assist with discharge planning -02/21/2021: Still little bit disoriented, does not know how old he is. Will evaluate PT and OT and plan for probable SNF placement. Based on his delirium overnight previously as well as continued cognitive dysfunction, he does likely have mild dementia at this time. 2. Dehydration ?As evidenced by patient's ketonuria ?On IV fluids with subsequent monitoring of electrolytes -02/21/2021: Tolerating p.o. intake, can discontinue his IV fluids 3. Partially treated acute cystitis ?Patient started on Rocephin cultures sent ?02/20/2021; discontinue Rocephin start the patient on cefdinir will discontinue antibiotics if cultures come back negative -02/21/2021: Urine culture is negative however will await for blood cultures prior to discontinuing antibiotics, can also try to attempt to obtain outpatient urine culture data just to check on sensitivities 4. Dyslipidemia -Patient is on statin therapy, continued at home dose 5. Obesity with BMI of 33.2 ?Weight loss advised DVT: Lovenox Charges/Coding Visit Charges Inpatient E&M: 21736 Subs Hosp L2
[2021-02-21] MEDS: Famotidine 20 MG Tablet PO ×2 (11:01→21:13)
[2021-02-21] MEDS: Enoxaparin 40 MG/0.4 ML Syringe SC (11:02)
[2021-02-21] MEDS: Cefdinir 300 MG Capsule PO ×2 (11:02→21:13)
--- NOTE | 2021-02-21 12:30 | CASEMGMT ---
Social Work Assessment Referral Date: 02/19/2021 Date of Assessment: 02/21/2021 Reason for consult: Poss SNF placement Informant: SW Personal Status: SW met with pt to complete initial assessment. Pt is alert and orientated x3. Living Arrangements: Pt states he lives alone in a two story home. Pt states he goes to both floors in the home. Pt states his bedroom is on the second floor. Pt states there are five steps to enter his home and he has railings next to the steps. DME: [employer] ADLs: Pt states he was previously independent with ADLs, states he still drives. Advanced Directives: Pt states he has completed both HCPOA and LW. Pt states his daughter's Rowena and Angelica are his HCPOA. Supports: Pt states his daughters live out of state, states he does have local friends. Pt states his friend Willis was at [facility] earlier to visit to pt. PCP: Chai Baez Pharmacy: [facility] HHC: Pt denied SNF: Pt denied Substance Abuse Hx: Pt denied Mental Health Hx: Pt states history of anxiety and depression. Pt states he currently takes medications. Pt states he also see's a therapist 1x a week but unable to recall name of therapist or name of agency. Pt denied any history or any current suicidal thoughts/plans/ideations. Pt states I wouldn't call them suicidal thoughts. SW asked pt to elaborate. Pt states I need to be aware of what's going on in my head. Pt states he is better off dealing with his health problems up front instead of dragging himself or his family through his health problems. Pt again though denied any current suicidal thoughts/plans/ideations. SW asked pt about coping skills. Pt states he likes to gripe and watch TV. Interventions: SW spoke with pt about discharge plans and recommendation of SNF. Pt is alert and orientated throughout conversation but does mumble to himself during conversation and had to be redirected during conversation. Pt does state he is agreeable to SNF. Patient was provided a list of SNF providers including quality and resource use data and consistent with the patient?s preferred geographic region, medical needs, and insurance network. Pt states he would like to review list and discuss with others. SW informed pt that this worker could call his daughters to discuss SNF and pt denied. SW informed pt that he needs to begin looking at SNF list today so referrals can be made. While looking at SNF list, pt made comments about well I didn't think it would come to this conversation, about me having to go to a senior living. Pt states I may be better off . SW spoke with pt about this comment. Pt denied any current suicidal thoughts/plans/ideations. SW informed pt that this worker will check back with pt to get choices for SNF. Pt states understanding. Plan: SNF Laura Siddiqui WASHERY ENGINEER, SALES TRADER
[2021-02-21 14:20] VITALS: BP 110/68; PULSE 70; RESP 16; TEMP 37.1; O2SAT 93
[2021-02-21 20:30] VITALS: BP 112/60; PULSE 66; RESP 16; TEMP 36.6; O2SAT 95
[2021-02-21] MEDS: MELATONIN 3 MG TABLET PO (21:13)
[2021-02-22 02:00] VITALS: BP 120/58; PULSE 60; RESP 16; TEMP 36.6; O2SAT 97
[2021-02-22 09:00] VITALS: BP 112/78; PULSE 79; RESP 18; TEMP 36.4; O2SAT 94
[2021-02-22] MEDS: Famotidine 20 MG Tablet PO ×2 (09:10→21:33)
[2021-02-22] MEDS: Enoxaparin 40 MG/0.4 ML Syringe SC (09:10)
[2021-02-22] MEDS: Cefdinir 300 MG Capsule PO ×2 (12:33→21:34)
--- NOTE | 2021-02-22 12:55 | PN.HOSP_ITS ---
Subjective Subjective Still confused, thinks it is 2012 and that he is 75 years old. No issues overnight, MRI was obtained from the [facility] which just demonstrated vascular dementia and central brain loss. He did not have a urine culture obtained as an outpatient just a UA therefore will likely have to complete another day or 2 of antibiotics. Objective Data Objective Data Vital Signs: Vital Signs Temp Pulse Resp BP Pulse Ox 97.6 F L 79 18 112/78 94 02/22/21 09:00 02/22/21 09:00 02/22/21 09:00 02/22/21 09:00 02/22/21 09:00 Oxygen Delivery Method Room Air Weight: 220 lb 0.341 oz Body Mass Index (BMI) 33.4 Intake & Output: Intake and Output for Last 24 Hours 02/21/21 02/22/21 02/23/21 03:59 03:59 03:59 Intake Total 1588.33 / 1588.33 800 / 800 Output Total 1550 / 1550 300 / 300 Balance 38.33 / 38.33 500 / 500 Lab / Micro Data Result Diagrams: 02/21/21 05:55 02/21/21 05:55 Micro: Microbiology 02/19/21 14:00 Urine, Clean Catch Urine Culture - Final Culture exhibits no growth. 02/19/21 12:45 Blood Culture (Wb) - Anticubital Right Blood Culture - Preliminary No growth in 48 hours. 02/19/21 12:45 Blood Culture (Wb) - Anticubital Left Blood Culture - Preliminary No growth in 48 hours. 02/19/21 13:00 Mucosa - Nose SARS-CoV-2 Antigen (Rapid) - Final Physical Exam Const alert and no apparent distress Orientation / Consciousness: oriented to place and oriented to time HEENT moist oral mucous membranes Eyes PERRL, EOMs intact bilaterally and conjunctivae normal Neck supple and no JVD Resp normal respiratory effort, no retractions, no use of accessory muscles and clear to auscultation bilaterally Auscultation: diminished lung sounds; Negative for crackles, rales, rhonchi or wheezes Cardio regular rate, regular rhythm, S1 normal heart sound, S2 normal heart sound and no murmurs GI soft to palpation, non-tender and non-distended; Negative for hepatosplenomegaly Extremity no clubbing, cyanosis or edema Skin no rashes or lesions noted Neuro no focal motor deficits and no sensory deficits noted Psych affect normal Appearance: appropriate Assessment & Plan Assessment/Plan (1) Dehydration: (2) Ketonuria: (3) FTT (failure to thrive) in adult: PLAN: Patient is an 85-year-old gentleman admitted with progressive generalized weakness 1. Adult failure to thrive - Requested for PT OT eval and social work coordinator to assist with discharge planning -02/21/2021: Still little bit disoriented, does not know how old he is. Will evaluate PT and OT and plan for probable SNF placement. Based on his delirium overnight previously as well as continued cognitive dysfunction, he does likely have mild dementia at this time. -02/22/2021: Still disoriented to person and time now. He does recognize that he is not processing the information as well as he should. PT/OT is recommending longterm facility discharge. MRI from outside hospital demonstrated ischemic changes consistent with vascular dementia as well as central loss. He likely does have a baseline of dementia. 2. Dehydration ?As evidenced by patient's ketonuria ?On IV fluids with subsequent monitoring of electrolytes -02/21/2021: Tolerating p.o. intake, can discontinue his IV fluids 3. Partially treated acute cystitis ?Patient started on Rocephin cultures sent ?02/20/2021; discontinue Rocephin start the patient on cefdinir will discontinue antibiotics if cultures come back negative -02/21/2021: Urine culture is negative however will await for blood cultures prior to discontinuing antibiotics, can also try to attempt to obtain outpatient urine culture data just to check on sensitivities -02/22/2021: Outpatient lab work only consisted of a UA, no culture was obtained therefore we will continue with antibiotic treatment for 1 or 2 more days to be sure that whenever he has is cleared. 4. Dyslipidemia -Patient is on statin therapy, continued at home dose 5. Obesity with BMI of 33.2 ?Weight loss advised DVT: Lovenox Charges/Coding Visit Charges Inpatient E&M: 70634 Subs Hosp L2
[2021-02-22 16:20] VITALS: BP 100/74; PULSE 80; RESP 18; TEMP 36.9; O2SAT 93
--- NOTE | 2021-02-22 17:07 | CASEMGMT ---
Social Work Note Pt's daughter Angelica is present at [facility]. SW in to speak with pt and Angelica. Pt gave this worker permission to speak to him in front of his guest. ANTONIA asked pt about SNF choices. Pt states first choice is [facility]. SW informed pt that [facility] has no beds available. Angelica states second choice is [facility]. Pt agreeable to [facility]. SW explained referral process. Pt and Agnelica state understanding. ANTONIA placed a call to Chyna at [facility] and left message regarding referral. SW faxed referral. Angelica then updated this worker that if [facility] is not able to accept pt then [facility] second choice. ANTONIA explained to Angelica that [facility] assisted [facility] and is all private pay and pt needs too much assistance at this time for assisted living. Angelica states that she and her sister Rowena were expecting a call regarding SNF options yesterday and they never got a call. ANTONIA explained that this worker met with pt yesterday, pt was alert and orientated x3, and this worker did ask pt if this worker could call his daughter's yesterday regarding SNF and pt had told this worker to not bother them with it and he would speak to his daughters later about it. Angelica states Rowena needs to be on the phone with every conversation that takes place with pt as pt has confusion and forgetfulness. ANTONIA explained that yesterday pt was alert and orientated x3 and is own person and able to make own decisions. ANTONIA explained that pt is able to make own decisions up until the point that pt is either confused and not able to make decisions or is deemed incompetent. ANTONIA spoke with Angelica about process of getting pt evaluated for incompetency and how that has to be done through pt's PCP if she wishes to pursue that. ANTONIA then updated by RN that she spoke with Rowena that states if [facility] is not able to accept pt, second choice would be [facility]. ANTONIA received call from Chyna at [facility] stating they are able to accept pt, asked for copy of pt's COVID card. ANTONIA placed a call to pt's daughter Angelica, no answer, SW left message. ANTONIA placed a call to pt's daughter Rowena and asked about pt's COVID card as [facility] is requesting card. Rowena states pt has had COVID vaccinations and pt's card should be at pt's home and Angelica is currently staying at pt's home and she should be able to find card and bring card to [facility]. ANTONIA spoke with Angelica and updated her that [facility] is able to accept pt, plan will be for discharge tomorrow. Angelica provided this worker with pt's COVID card. ANTONIA made copy and faxed copy to [facility]. ANTONIA placed a call to pt's daughter Rowena and updated her that plan is discharge to [facility] tomorrow if medically cleared. Rowena states understanding. Plan: [facility] Tomorrow Laura Siddiqui GUEST RELATIONS ASSOCIATE, JACK SPOOLER TENDER
[2021-02-22 20:05] VITALS: BP 114/74; PULSE 71; RESP 18; TEMP 36.6; O2SAT 97
[2021-02-23 02:19] VITALS: BP 118/78; PULSE 62; RESP 18; TEMP 36.8; O2SAT 94
[2021-02-23 02:46] VITALS: BP 134/61; PULSE 60; RESP 18; TEMP 37.1; O2SAT 92
[2021-02-23 06:57] LABS: Absolute Lymphocyte Count 1.49 X10^3/uL (0.83-4.51); Absolute Neutrophil Count 3.9 X10^3/uL (2.0-7.7); Basophil# 0.04 X10^3/uL; Basophil% 0.6 % (0-1); Eosinophils% 3.1 % (0-5); Hematocrit 40.7 % (40-54); Hemoglobin 13.3 g/dL (13.0-16.5); Lymphocyte # 1.49 X10^3/ul (0.83-4.51); Lymphocyte % 23.3 % (19-41); Mean Corp Hgb Conc 32.7 g/dL (32-36); Mean Corpuscular Volume 91.9 fL (80-94); Mean Platelet Vol. 10.3 fl (6.2-12.0); Monocyte# 0.74 X10^3/uL; Monocyte% 11.6 % (0-10); NRBC Flagged by Analyzer 0 % (0-5); Neutrophil % 60.9 % (47-70); Platelet Count 231 K/mm3 (150-450); RBC Distribution Width CV 13.3 % (11.6-14.6); RBC Distribution Width SD 45.3 fl (35.1-43.9); Red Blood Count 4.43 M/mm3 (4.6-6.2); White Blood Count 6.4 K/mm3 (4.4-11.0)
[2021-02-23 07:47] LABS: Anion Gap 6 (5-15); BUN 14 mg/dL (7-18); BUN/Creat Ratio 23.4 RATIO (10-20); Calcium,Total 8.6 mg/dL (8.5-10.1); Chloride 105 mmol/L (98-107); EST Glomerular Filtration Rate 137 mL/min (>60); Est Glom Filt Rate - Afr Amer 166 mL/min (>60); Estimated Creatinine Clearance 54.15 ml/min; Glucose 102 mg/dL (74-106); Potassium 4.1 mmol/L (3.5-5.1); Sodium Level 138 mmol/L (136-145); Thyroid Stim Hormone (TSH) 2.37 uIU/mL (0.358-3.74)
[2021-02-23 07:51] VITALS: BP 132/72; PULSE 63; RESP 18; TEMP 36.4; O2SAT 96
[2021-02-23] MEDS: Enoxaparin 40 MG/0.4 ML Syringe SC (08:09)
[2021-02-23] MEDS: Famotidine 20 MG Tablet PO (08:09)
[2021-02-23] MEDS: Cefdinir 300 MG Capsule PO (08:09)
[2021-02-23 09:21] LABS: Vitamin B12 394 pg/mL (211-911)
--- NOTE | 2021-02-23 09:37 | CASEMGMT ---
Addendum entered by Laura Siddiqui 02/23/21 12:40: ANTONIA faxed discharge paperwork to [facility] including transfer to extended care facility, signed medication list, any scripts, COVID test and COVID tool. Original in SNF Folder and copy on pt's chart. SW completed convalescent 7000 in [place]. Original in SNF folder and copy on pt's chart. ANTONIA spoke with RN, pt can transport via cot. SW accessed trip assit and arranged transportation via cot for 1:30pm. Transportation form completed and placed on SNF Folder and copy on pt's chart. ANTONIA placed a call to [facility] and left message for Mindy updating her on transportation time. ANTONIA placed a call to pt's daughter Angelica and left message. ANTONIA placed a call to pt's daughter Rowena and updated her on discharge and transportation time. ANTONIA informed Rowena that this worker did try and call Angelica and had to leave a message for her. Rowena states [facility] may have wrong number for Angelica as Angelica is stating she has no missed calls. ANTONIA reviewed current number for Angelica with Rowena, that is Angelica's home phone number (which is in [place]). [facility] states Angelica's cell phone number is [phone]. ANTONIA placed a call to Angelica's Cell Phone and updated Angelica that pt will be discharged to [facility] today at 1:30pm. Angelica states understanding. RN updated. Plan: [facility] skilled today with Physician's transporting pt via cot at 1:30pm Original Note: Social Work Note Pt is able to discharge to [facility] today, will need a new COVID test. ANTONIA placed a call to Mindy at [facility] and left message that pt will be discharged today to [facility]. SW to fax discharge paperwork once completed and will arrange transportation. Plan: [facility] today skilled Laura Siddiqui PAPER RECLAIMING MACHINE OPERATOR, TIER LIFT OPERATOR
--- NOTE | 2021-02-23 09:59 | PCM.TXEXTCAR ---
Diet 02/19/21 16:48 Diet: Regular - General Food consistency:: Regular Liquid Consistency:: Regular/Thin Routine Orders/Code Status Routine Lab Work: CBC and BMP Code Status: DNRCC-A Therapies Physical Therapy: Eval and Treat Occupational Therapy: Eval and Treat Problem/Diagnosis (1) Dehydration: Status: Acute (2) Ketonuria: Status: Acute (3) FTT (failure to thrive) in adult: Status: Acute Allergies/Procedures Done in Hospital Allergies Penicillins [PCN] Allergy (Verified 02/19/21 11:32) Rash atorvastatin [From Lipitor] Adverse Reaction (Verified 02/19/21 16:52) muscle aches clopidogrel [From Plavix] Adverse Reaction (Verified 02/19/21 16:52) bruising metformin Adverse Reaction (Verified 02/19/21 16:52) didnt feel good Procedures: None Type of Care/Length of Stay Estimated LOS: Convalescent Care Less Than 30 days Type of Care Needed: Skilled Rehab Potential: Good Prognosis: Good Additional Orders/Day of Discharge Day of Discharge: 02/23/21 Dietary and Speech Recommendations Dietitian Recommendations/Changes: Continue current diet order- will provide therapeutic diet if pt continues w/ good intake at meals. Discharge Plan Admission Admit Date/Time: 02/20/21 20:01 Attending Provider: Rafy Newby Primary Care Provider: Chai Baez Instructions Additional Instructions / Restrictions: TSH was normal, vitamin B12 is pending for further evaluation of his confusion, [facility] MRI did demonstrate severe chronic microvascular ischemic disease with severe corresponding central brain volume loss and ventricular enlargement. May need to follow-up with a neurologist as an outpatient for further evaluation. Discharge Orders/Prescriptions Prescriptions: New cefdinir 300 mg Capsule 300 mg PO Q12 Qty: 4 RF: 0 Continued aspirin-dipyridamole 25-200 mg Capsule, Er Multiphase 12 Hr 1 cap PO BID RF: 0 simvastatin [Zocor] 40 mg Tablet 40 mg PO QHS RF: 0 multivitamin Tablet 1 tab PO DAILY RF: 0 ascorbic acid (vitamin C) 1,000 mg Tablet,Chewable 1 g PO DAILY RF: 0 cholecalciferol (vitamin D3) [Vitamin D3] 25 mcg (1,000 unit) Tablet 25 mcg PO MOTUWETHFR RF: 0 lorazepam [Ativan] 0.5 mg Tablet 0.5 mg PO BID PRN (Reason: Anxiety) Qty: 5 RF: 0 Discontinued sulfamethoxazole-trimethoprim [Bactrim DS] 800-160 mg Tablet 1 tab PO BID RF: 0 Referrals / Follow Up: Chai Baez MD [Primary Care Provider] - Disposition Disposition (needs filled in before D/C Order can be placed): Long-Term Facility
--- NOTE | 2021-02-23 14:08 | DS.PCM_ITS ---
Providers Date of Admission: 02/20/21 Primary Care Physician: Dr. Chai Baez MD Reason For Visit: FAILURE TO THRIVE Diagnosis Discharge Diagnosis (1) Dehydration: Status: Acute Code(s): E86.0 - Dehydration (2) Ketonuria: Status: Acute Code(s): R82.4 - Acetonuria (3) FTT (failure to thrive) in adult: Status: Acute Code(s): R62.7 - Adult failure to thrive Medications at Discharge Home Medications ascorbic acid (vitamin C) 1 g PO DAILY 02/19/21 aspirin-dipyridamole 1 cap PO BID 02/19/21 cholecalciferol (vitamin D3) [Vitamin D3] 25 mcg PO MOTUWETHFR 02/19/21 multivitamin 1 tab PO DAILY 02/19/21 simvastatin [Zocor] 40 mg PO QHS 02/19/21 cefdinir 300 mg PO Q12 #4 cap 02/23/21 lorazepam [Ativan] 0.5 mg PO BID PRN #5 tab 02/23/21 Hospital Course Operations None Procedures None Summary of Care Provided Minutes Spent on Discharge: 40 Hospital Course: Per HPI: LEONOR BOSE, is a 85 M with past medical history significant for dyslipidemia, recent diagnosis of UTI as outpatient who presents with generalized weakness. Patient states he had been treated with Bactrim for UTI as outpatient he however did not complete treatment since it made him sick. He has also noticed increasing generalized weakness and unsteady balance and difficulty with speech as well as recollection of his start. Presented to the emergency department as a result. An assessment of dehydration made based on his labs. Admitted to regular nursing floor for further management Hospital Course: 1. Adult failure to thrive with dehydration and a partially treated acute cystitis with metabolic [id number] male who presented to the hospital with generalized weakness and confusion. About a week or 2 prior to admission he was noticed to be more confused by family over the phone and a friend of his took him to the doctor who got a UA which was slightly cloudy and therefore prescribed him Bactrim. Unfortunately he was unable to tolerate the Bactrim and then complete the course, no culture was obtained as an outpatient and unfortunately the culture obtained here in the hospital is nondiagnostic so he was started on Rocephin however he had an episode of sundowning and ripped out his IV so he was transitioned to cefdinir p.o. to complete therapy. In working up his confusion an outpatient MRI was obtained in the [facility] which demonstrated microvascular ischemic changes which are characterized as severe as well as severe cortical thinning centrally with enlargement of his ventricles. No definitive history of dementia though his daughter did say that the last several years she has noticed some episodes of confusion or forgetfulness, TSH is unremarkable and B12 is currently pending. He has had some improvement with treatment of UTI however would recommend as an outpatient, that he follow-up with neurology for evaluation of his MRI and his confusion. I discussed with the family the potential of having neurology consult here through telemedicine however they would prefer a [id number] consultation in the outpatient setting. I discussed the plan for discharge today with the patient and his daughter and they both expressed understanding of the risk and benefits of discharge and would like to proceed with discharge today to long term facility to get started on his therapy. Physical Exam Const alert and no apparent distress General Appearance: cooperative Orientation / Consciousness: oriented to place and oriented to time HEENT normocephalic and moist oral mucous membranes Eyes PERRL, EOMs intact bilaterally and conjunctivae normal Neck supple and no JVD Resp normal respiratory effort, no retractions, no use of accessory muscles and clear to auscultation bilaterally Auscultation: diminished lung sounds; Negative for crackles, rales, rhonchi or wheezes Cardio regular rate, regular rhythm, S1 normal heart sound, S2 normal heart sound and no murmurs GI soft to palpation, non-tender and non-distended; Negative for hepatosplenomegaly Extremity no clubbing, cyanosis or edema Skin no rashes or lesions noted Neuro no focal motor deficits and no sensory deficits noted Psych affect normal Appearance: appropriate Weight / BMI Weight Weight: 220 lb 0.341 oz Body Mass Index (BMI) 33.4 ABG / Lab / Microbiology Data Result Diagrams: 02/23/21 06:02/23/21 06:20 Laboratory: Laboratory Results - last 24 hr 02/23/21 02/23/21 02/23/21 06:20 06:20 06:20 WBC 6.4 RBC 4.43 L Hgb 13.3 Hct 40.7 MCV 91.9 MCH 30.0 MCHC 32.7 RDW Std Deviation 45.3 H RDW Coeff of [place] 13.3 Plt Count 231 MPV 10.3 Immature Gran % (Auto) 0.500 Neut % (Auto) 60.9 Lymph % (Auto) 23.3 Nye % (Auto) 11.6 H Eos % (Auto) 3.1 Baso % (Auto) 0.6 Absolute Neuts (auto) 3.9 Absolute Lymphs (auto) 1.49 Nucleated RBC % 0 Sodium 138 Potassium 4.1 Chloride 105 Carbon Dioxide 27.0 Anion Gap 6 BUN 14 Creatinine 0.60 L Estim Creat Clear Calc 54.15 Est GFR (MDRD) Af Amer 166 Est GFR (MDRD) Non-Af 137 BUN/Creatinine Ratio 23.4 H Glucose 102 Calcium 8.6 Vitamin B12 394 TSH 2.37 Microbiology: Microbiology 02/23/21 10:15 SARS-CoV-2 Antigen (Rapid) - Final Mucosa - Nose Microbiology 02/23/21 10:15 Mucosa - Nose SARS-CoV-2 Antigen (Rapid) - Final 02/19/21 14:00 Urine, Clean Catch Urine Culture - Final Culture exhibits no growth. 02/19/21 12:45 Blood Culture (Wb) - Anticubital Right Blood Culture - Preliminary No growth in 48 hours. 02/19/21 12:45 Blood Culture (Wb) - Anticubital Left Blood Culture - Preliminary No growth in 48 hours. 02/19/21 13:00 Mucosa - Nose SARS-CoV-2 Antigen (Rapid) - Final Meaningful Use Info Meaningful Use Diagnoses (Choose all that apply): None applicable Discharge Plan Admission Admit Date/Time: 02/20/21 20:01 Attending Provider: Rafy Newby Primary Care Provider: Chai Baez Instructions Additional Instructions / Restrictions: TSH was normal, vitamin B12 is pending for further evaluation of his confusion, [facility] MRI did demonstrate severe chronic microvascular ischemic disease with severe corresponding central brain volume loss and ventricular enlargement. May need to follow-up with a neurologist as an outpatient for further evaluation. Discharge Orders/Prescriptions Prescriptions: New cefdinir 300 mg Capsule 300 mg PO Q12 Qty: 4 RF: 0 Continued aspirin-dipyridamole 25-200 mg Capsule, Er Multiphase 12 Hr 1 cap PO BID RF: 0 simvastatin [Zocor] 40 mg Tablet 40 mg PO QHS RF: 0 multivitamin Tablet 1 tab PO DAILY RF: 0 ascorbic acid (vitamin C) 1,000 mg Tablet,Chewable 1 g PO DAILY RF: 0 cholecalciferol (vitamin D3) [Vitamin D3] 25 mcg (1,000 unit) Tablet 25 mcg PO MOTUWETHFR RF: 0 lorazepam [Ativan] 0.5 mg Tablet 0.5 mg PO BID PRN (Reason: Anxiety) Qty: 5 RF: 0 Discontinued sulfamethoxazole-trimethoprim [Bactrim DS] 800-160 mg Tablet 1 tab PO BID RF: 0 Referrals / Follow Up: Chai Baez MD [Primary Care Provider] - Disposition Disposition (needs filled in before D/C Order can be placed): Intermediate Facility Charges/Coding Visit Charges Inpatient E&M: 02919 Disch Hosp
== END 2021-02-23 13:25 | disposition skilled nursing facility (03) | DRG 640 ==
LOC: ED 12:31 → MS3 22:40
PROVIDERS: Admitting Provider Internal Medicine; Emergency Provider Emergency Medicine; PCP Family Medicine; Visit Provider Family Medicine
DX: E86.0 Dehydration (principal); G93.41 Metabolic encephalopathy; N30.00 Acute cystitis without hematuria; R62.7 Adult failure to thrive; Z79.2 Long term (current) use of antibiotics; Z87.891 Personal history of nicotine dependence; R82.4 Acetonuria; E78.5 Hyperlipidemia, unspecified; E66.9 Obesity, unspecified; Z68.33 Body mass index [BMI] 33.0-33.9, adult; Z79.899 Other long term (current) drug therapy; Z66 Do not resuscitate; F01.50 Vascular dementia, unspecified severity, without behavioral disturbance, psychotic disturbance, mood disturbance, and anxiety
CPT/HCPCS: 36415; 71045; 80048; 80053; 81001; 82607; 83605; 83735; 84443; 84484; 85025; 85610; 85730; 87040; 87086; 87426; 93005; 97162; 97165; 97530; 97535; 99251; 99285; J7030; A4216; G0463